=== PATIENT | male | born 1955 | race Caucasian/White ===

== ENCOUNTER 2020-08-13 13:01 | Emergency (ER) | payer OTHER ==
[~2020-08-13 13:01] MED LIST: CEFDINIR300 MG PO; MEDROL 4MG DOSEP4 MG PO; TOPROL XL 50 MG50 MG PO; VANCOMYCIN HCL125 MG PO
[2020-08-13 14:41] LABS: BASOPHIL 0.3 % (0-2); EOSINOPHIL 0 % (0-5); HCT 49.6 % (42.0-52.0); LYMPHOCYTE 7.1 % (15-48); MCH 38.6 pg (25.0-31.0); MCHC 36.3 g/dL (32.0-36.0); MCV 106.4 fL (78.0-100.0); MONOCYTE 3.3 % (0-12); MPV 10.6 fL (6.0-9.5); NEUTROPHIL 88.6 % (41-80); NRBC 0; PLT 107 K/uL (150-400); RBC 4.66 M/uL (4.70-6.00); RDW 12.9 % (11.5-14.0); WBC 13.8 K/uL (4.0-10.5)
[2020-08-13 14:51] LABS: INR 1.15 (0.9-1.2); PTT 30.2 SECONDS (22.2-34.7)
[2020-08-13 15:03] LABS: LACTIC ACID 5.2 mmol/L (0.4-1.9)
[2020-08-13 15:08] LABS: D-DIMER 7.54 ug/mLFEU (0.00-0.41)
[2020-08-13 15:16] LABS: ALBUMIN 3.4 g/dL (3.4-5.0); ALKALINE PHOSHATASE 88 U/L (46-116); ALT 923 U/L (16-63); BILIRUBIN - TOTAL 1.1 mg/dL (0.2-1.0); BUN 18 mg/dL (7-18); BUN/CREAT RATIO (CALC) 7.7 RATIO; CHLORIDE 96 mmol/L (98-107); CO2 (BICARBONATE) 22 mmol/L (21-32); CREATININE 2.33 mg/dL (0.67-1.17); GLOBULIN (CALCULATION) 3.6 g/dL; GLUCOSE 182 mg/dL (74-106); POTASSIUM 4.6 mmol/L (3.5-5.1)
[2020-08-13 16:04] LABS: CPK > 1000 U/L (39-308)
[2020-08-13 16:07] LABS: AST >2000 U/L (15-37)
== END 2020-08-13 19:29 | disposition other institution (70) ==
LOC: FER 13:01
PROVIDERS: Emergency Medicine
DX: I70.221 Atherosclerosis of native arteries of extremities with rest pain, right leg (principal); I21.4 Non-ST elevation (NSTEMI) myocardial infarction; N17.9 Acute kidney failure, unspecified; R74.01 Elevation of levels of liver transaminase levels; E87.2 Acidosis; I10 Essential (primary) hypertension; Z20.822 Contact with and (suspected) exposure to COVID-19
CPT/HCPCS: 36415; 70450; 71250; 80053; 82550; 83605; 84484; 85025; 85379; 85520; 85610; 85730; 93005; 94640; 94664; G0480; J1644; J2060; J3411; J3475; J7030; U0002